=== PATIENT | female | born 1975 | race Asian ===

== ENCOUNTER 2020-04-03 13:01 | Emergency (ER) | payer OTHER ==
[~2020-04-03] VITALS: Ht 154.9 cm; Wt 111.1 kg
[2020-04-03 13:57] LABS: PLATELET COUNT 307 K/uL (152-353)
[2020-04-03 14:06] LABS: POTASSIUM 3.3 mmol/L (3.6-5.2); SODIUM 137 mmol/L (136-145)
[2020-04-03 16:44] VITALS: BP 107/69; TEMP 97
== END 2020-04-03 16:44 | disposition home or self-care (01) ==
LOC: ED 13:01
PROVIDERS: Emergency Medicine Emergency Medical Services
DX: R07.89 Other chest pain (principal); R60.0 Localized edema; Z20.828 Contact with and (suspected) exposure to other viral communicable diseases
CPT/HCPCS: 36415; 80053; 81000; 83880; 84484; 85027; 87635; 93005; 96374; 99284; J1940; U0003

== ENCOUNTER 2020-07-06 22:39 | Emergency (ER) | payer OTHER ==
[~2020-07-06] VITALS: Ht 154.9 cm; Wt 111.1 kg
[2020-07-06 23:36] LABS: PLATELET COUNT 319 K/uL (152-353)
[2020-07-06 23:46] LABS: POTASSIUM 3.2 mmol/L (3.6-5.2); SODIUM 137 mmol/L (136-145)
[2020-07-06 23:52] LABS: PARTIAL THROMBOPLASTIN TIME 26.5 SECONDS (24.5-33.6)
[2020-07-07 00:33] VITALS: BP 137/85; TEMP 98.9
== END 2020-07-07 00:33 | disposition home or self-care (01) ==
LOC: ED 22:39
PROVIDERS: Hospitalist
DX: R60.0 Localized edema (principal); I50.9 Heart failure, unspecified; M79.604 Pain in right leg
CPT/HCPCS: 36415; 80053; 82550; 82553; 83880; 84484; 85027; 85610; 85730; 93005; 96374; 96375; 99284; J1940

== ENCOUNTER 2021-02-09 10:28 | Emergency (ER) | payer OTHER ==
[~2021-02-09] VITALS: Ht 154.9 cm; Wt 111.1 kg
[2021-02-09 11:00] LABS: PLATELET COUNT 277 K/uL (152-353)
[2021-02-09 11:15] LABS: PARTIAL THROMBOPLASTIN TIME 25.7 SECONDS (24.5-33.6)
[2021-02-09 11:18] LABS: POTASSIUM 3.4 mmol/L (3.6-5.2); SODIUM 137 mmol/L (136-145)
[2021-02-09 12:40] VITALS: BP 123/70; TEMP 97.9
== END 2021-02-09 12:45 | disposition home or self-care (01) ==
LOC: ED 10:28
PROVIDERS: Hospitalist
DX: R07.89 Other chest pain (principal); R25.2 Cramp and spasm
CPT/HCPCS: 36415; 80053; 81000; 82550; 83880; 84484; 85027; 85379; 85610; 85730; 93005; 99283

== ENCOUNTER 2021-05-21 14:24 | Outpatient (CLI) | payer OTHER | END 2021-05-21 18:57 | disposition home or self-care (01) | LOC: MAMMO 14:24 | PROVIDERS: ATTEND Nurse Practitioner Family | DX: Z12.31 Encounter for screening mammogram for malignant neoplasm of breast (principal) | CPT/HCPCS: G0279 ==

== ENCOUNTER 2021-05-31 10:35 | Outpatient (CLI) | payer OTHER ==
[~2021-05-31] VITALS: Ht 162.6 cm; Wt 68.0 kg
[2021-05-31 12:51] LABS: PARTIAL THROMBOPLASTIN TIME 26.1 SECONDS (24.5-33.6)
== END 2021-05-31 21:05 | disposition home or self-care (01) ==
LOC: US 10:35
PROVIDERS: ATTEND Nurse Practitioner Family
DX: N63.10 Unspecified lump in the right breast, unspecified quadrant (principal); R92.8 Other abnormal and inconclusive findings on diagnostic imaging of breast; Z79.01 Long term (current) use of anticoagulants
CPT/HCPCS: 36415; 85610; 85730

== ENCOUNTER 2021-10-14 20:39 | Emergency (ER) | payer OTHER ==
[~2021-10-14] VITALS: Ht 154.9 cm; Wt 112.9 kg
[2021-10-14 20:39] VITALS: TEMP 98.9
[~2021-10-14 20:39] MED LIST: AMLODIPINE BESYLATE PO; ELIQUIS5 MG PO; FUROSEMIDE20 MG PO; HYDR50CA21 PO; LISI20TA11 PO; METO50TA63 PO; PRAVASTATIN10 MG PO; QUETIAPINE200 MG PO; SERTRALINE HYDR50 MG PO
[2021-10-14 21:45] LABS: PLATELET COUNT 329 K/uL (152-353)
[2021-10-14 21:51] LABS: POTASSIUM 3.6 mmol/L (3.6-5.2); SODIUM 136 mmol/L (136-145)
[2021-10-14 23:10] VITALS: BP 114/80
== END 2021-10-14 23:10 | disposition home or self-care (01) ==
LOC: ED 20:39
PROVIDERS: Hospitalist
DX: G43.909 Migraine, unspecified, not intractable, without status migrainosus (principal)
CPT/HCPCS: 36415; 80053; 80320; 82550; 83880; 84484; 85027; 85610; 85730; 93005; 96374; 96375; 99284; J1200; J1885; J2405

== ENCOUNTER 2021-10-23 13:39 | Outpatient (CLI) | payer OTHER | END 2021-10-23 19:07 | disposition home or self-care (01) | LOC: MAMMO 13:39 | PROVIDERS: ATTEND Nurse Practitioner Family | DX: Z12.31 Encounter for screening mammogram for malignant neoplasm of breast (principal); N64.4 Mastodynia ==

== ENCOUNTER 2022-01-20 15:45 | Emergency (ER) | payer OTHER ==
[~2022-01-20] VITALS: Ht 154.9 cm; Wt 112.9 kg
[2022-01-20 15:56] VITALS: TEMP 98.5
[2022-01-20 16:54] LABS: PLATELET COUNT 307 K/uL (152-353)
[2022-01-20 17:09] LABS: POTASSIUM 3.6 mmol/L (3.6-5.2)
[2022-01-20 18:12] VITALS: BP 133/80
== END 2022-01-20 18:13 | disposition home or self-care (01) ==
LOC: ED 15:45
PROVIDERS: Emergency Medicine
DX: R20.2 Paresthesia of skin (principal); Q07.00 Arnold-Chiari syndrome without spina bifida or hydrocephalus
CPT/HCPCS: 36415; 80053; 81002; 85027; 99283

== ENCOUNTER 2022-01-29 09:55 | Outpatient (CLI) | payer OTHER | END 2022-01-29 19:15 | disposition home or self-care (01) | LOC: RESP 09:55 → US 10:30 → MAMMO 11:00 → RESP 19:15 | PROVIDERS: ATTEND Nurse Practitioner Primary Care | DX: N63.10 Unspecified lump in the right breast, unspecified quadrant (principal); R07.89 Other chest pain; I50.9 Heart failure, unspecified; G47.33 Obstructive sleep apnea (adult) (pediatric); N64.59 Other signs and symptoms in breast; I11.0 Hypertensive heart disease with heart failure | CPT/HCPCS: 93225; G0279 ==

== ENCOUNTER 2022-02-05 08:57 | Outpatient (CLI) | payer OTHER ==
[~2022-02-05] VITALS: Ht 154.9 cm; Wt 112.9 kg
== END 2022-02-05 19:54 | disposition home or self-care (01) ==
LOC: NM 08:57
PROVIDERS: ATTEND Specialist
DX: R07.89 Other chest pain (principal); I50.9 Heart failure, unspecified; I11.0 Hypertensive heart disease with heart failure
CPT/HCPCS: A9500; J2785

== ENCOUNTER 2022-02-22 10:02 | Outpatient (CLI) | payer OTHER ==
[2022-02-22 10:44] LABS: PLATELET COUNT 287 K/uL (152-353)
[2022-02-22 10:50] LABS: POTASSIUM 3.4 mmol/L (3.6-5.2)
== END 2022-02-22 19:18 | disposition home or self-care (01) ==
LOC: LABW 10:02
PROVIDERS: ATTEND Specialist
DX: M54.59 Other low back pain (principal); G56.83 Other specified mononeuropathies of bilateral upper limbs; M51.37 Other intervertebral disc degeneration, lumbosacral region; M51.34 Other intervertebral disc degeneration, thoracic region; M51.35 Other intervertebral disc degeneration, thoracolumbar region; R94.39 Abnormal result of other cardiovascular function study
CPT/HCPCS: 36415; 80048; 85027